=== PATIENT | male | born 1990 | race Caucasian/White ===

== ENCOUNTER 2019-06-10 16:41 | Emergency (ER) | payer SELFPAY ==
[2019-06-10] MEDS ORDERED: Oxymetazoline HCl 0.05% (30 ML BOT) ONE (17:13)
[2019-06-10] MEDS ORDERED: Ibuprofen 800 MG TAB ONE (17:31)
== END 2019-06-10 17:35 | disposition home or self-care (01) ==
LOC: BURERS 16:41
DX: S02.2XXA Fracture of nasal bones, initial encounter for closed fracture (principal); F17.210 Nicotine dependence, cigarettes, uncomplicated; X58.XXXA Exposure to other specified factors, initial encounter
CPT/HCPCS: 99283